=== PATIENT | male | born 1980 | race Caucasian/White ===

== ENCOUNTER 2017-02-24 06:29 | Day surgery (SDC) | payer OTHER ==
[2017-02-24] VITALS (7 sets, daily range): BP systolic 110–142; BP diastolic 53–84
[~2017-02-24] VITALS: Ht 182.9 cm; Wt 89.5 kg
[2017-02-24] MEDS ORDERED: ONDANSETRON 4MG/2ML VIAL (J2405) IV ONE (07:15)
[2017-02-24] MEDS ORDERED: NS 1,000 ML IV ONE (07:15)
[2017-02-24 07:46] LABS: BASO % 0.1 % (0.0-1.0); EOS # 0.1 K/mm3 (0.0-0.50); EOS % 0.9 % (0.0-3.0); LARGE UNSTAINED CELL # 0.1 K/mm3 (0.0-0.4); LARGE UNSTAINED CELL % 0.5 % (0.0-4.0); LYMPH % 6.2 % (24.0-44.0); MEAN CORPUSCULAR HEMOGLOBIN 32.2 pg (27.0-33.0); MEAN CORPUSCULAR HGB CONC 34.6 g/dl (32.0-36.5); MEAN CORPUSCULAR VOLUME 92.9 fl (80.0-96.0); MONO # 0.5 K/mm3 (0.0-0.8); MONO % 3.2 % (0.0-5.0); NEUTROPHILS # 13.2 K/mm3 (1.8-7.7); NEUTROPHILS % 89.1 % (36.0-66.0); PLATELET COUNT, AUTOMATED 207 k/mm3 (150-450); RED CELL DISTRIBUTION WIDTH 12.8 % (11.5-14.5); WHITE BLOOD COUNT 14.8 K/mm3 (4.0-10.0)
[2017-02-24 08:05] LABS: ALBUMIN/GLOBULIN RATIO 1.29 (1.00-1.93); ALKALINE PHOSPHATASE 79 U/L (45-117); ALT/SGPT 29 U/L (12-78); ANION GAP 7 MEQ/L (8-16); AST/SGOT 15 U/L (15-37); BILIRUBIN,DIRECT 0.1 MG/DL (0.0-0.2); BILIRUBIN,TOTAL 0.5 MG/DL (0.2-1.0); BLOOD UREA NITROGEN 10 MG/DL (7-18); CARBON DIOXIDE LEVEL 24 MEQ/L (21-32); CHLORIDE LEVEL 108 MEQ/L (98-107); CREATININE FOR GFR 0.82 MG/DL (0.70-1.30); GLOMERULAR FILTRATION RATE > 60.0 (>60); GLUCOSE, FASTING 139 MG/DL (70-105); POTASSIUM SERUM 3.8 MEQ/L (3.5-5.1); SODIUM LEVEL 139 MEQ/L (136-145); TOTAL PROTEIN 7.1 GM/DL (6.4-8.2)
[2017-02-24] MEDS ORDERED: ISOVUE-370 76% 100ML VIAL (Q9967) As Ordered ONE (08:35)
[2017-02-24] MEDS ORDERED: MORPHINE 4 MG/ML 1ML SYRINGE IV ONE ×2 (09:00→11:00)
[2017-02-24] MEDS ORDERED: PIPERACILLIN/TAZOBACTAM SOD 3.375 GM in D5W MINI-BAG PLUS 50 ML IV ONE (09:30)
--- NOTE | 2017-02-24 09:43 | REP ---
CT ABDOMEN AND PELVIS WITH CONTRAST: TECHNIQUE: Axial contrast enhanced images from the lung bases to the pubic symphysis using 100 mL Isovue 370 intravenous contrast material with multiplanar reformations. Visualized lung bases demonstrate mild dependent atelectatic changes. The liver, spleen, adrenals, pancreas and kidneys are normal in appearance. There is no hydronephrosis. There is no abdominal aortic aneurysm. There is no significant adenopathy. There is no free air or free fluid. The appendix is dilated and diffusely thickened with surrounding streaky inflammatory change consistent with appendicitis. The urinary bladder is mildly distended and grossly unremarkable. No other pelvic abnormality is seen. IMPRESSION: Findings consistent with appendicitis with no free air or free fluid. Signed by Shayne Starkey MD 02/24/2017 11:58 A
[2017-02-24] MEDS ORDERED: MORPHINE 4 MG/ML 1ML SYRINGE As Ordered ONE (10:16)
[2017-02-24] MEDS ORDERED: BUPIVACAINE/EPIN 0.25% 30 ML VIAL As Ordered ONE (13:47)
[2017-02-24] MEDS ORDERED: LIDOCAINE 2% INJ 100 MG/5 ML SDV (FOR ANES.) As Ordered ONE (13:51)
[2017-02-24] MEDS ORDERED: PROPOFOL 200 MG/20 ML VIAL As Ordered ONE (13:51)
[2017-02-24] MEDS ORDERED: ONDANSETRON 4MG/2ML VIAL (J2405) As Ordered ONE (13:51)
[2017-02-24] MEDS ORDERED: ROCURONIUM BROMIDE 50 MG/5 ML VIAL/SYRINGE As Ordered ONE (13:51)
[2017-02-24] MEDS ORDERED: fentaNYL 250 MCG/5 ML INJECTION (J3010) As Ordered ONE (13:52)
[2017-02-24] MEDS ORDERED: MIDAZOLAM INJ 2 MG/2 ML VIAL (J2250) As Ordered ONE (13:52)
[2017-02-24] MEDS ORDERED: KETOROLAC 60 MG/2 ML VIAL (J1885) As Ordered ONE (14:49)
[2017-02-24] MEDS ORDERED: HYDROmorphone HCL 2 MG/ML 1ML VIAL (J1170) As Ordered ONE (14:50)
[2017-02-24] MEDS ORDERED: SUCCINYLCHOLINE 100 MG/5 ML SYRINGE (J0330) As Ordered ONE (14:52)
[2017-02-24] MEDS ORDERED: SUGAMMADEX SODIUM 500 MG/5 ML VIAL (BRIDION) As Ordered ONE (15:09)
[2017-02-24] MEDS ORDERED: PERCOCET 5MG/325MG TAB PO PRN (16:15)
[2017-02-24] MEDS ORDERED: HYDROmorphone HCL 1 MG/ML SYRINGE (J1170) IV PRN (16:15)
[2017-02-24] MEDS ORDERED: ONDANSETRON 4MG/2ML VIAL (J2405) IV PRN (16:15)
[2017-02-24] MEDS ORDERED: LR 1,000 ML IV SCH (16:15)
[2017-02-24] MEDS ORDERED: fentaNYL 100 MCG/2 ML INJECTION (J3010) IV PRN (16:15)
[2017-02-24] MEDS ORDERED: MORPHINE 2 MG/ML 1ML SYRINGE IV PRN (16:30)
[2017-02-24] MEDS ORDERED: ACETAMINOPHEN TAB 650MG DOSE (2X325MG) PO PRN (16:30)
[2017-02-24] MEDS: PIPERACILLIN/TAZOBACTAM SOD 3.375 GM in D5W MINI-BAG PLUS 50 ML IV SCH ×2 (17:07→23:00)
[2017-02-24] MEDS: LR 1,000 ML IV SCH ×2 (17:07→22:55)
[2017-02-24] MEDS: NORCO, ANEXSIA 5/325MG TABLET (HYDROcodone/ACETAMINOPHEN) PO PRN ×2 (17:08→23:15)
[2017-02-24] MEDS: KETOROLAC 30 MG/ML VIAL (J1885) IV SCH (20:21)
[2017-02-25] VITALS: BP 121/65
[2017-02-25] MEDS: KETOROLAC 30 MG/ML VIAL (J1885) IV SCH ×2 (02:59→09:15)
[2017-02-25 04:00] VITALS: BP 116/69
[2017-02-25] MEDS: PIPERACILLIN/TAZOBACTAM SOD 3.375 GM in D5W MINI-BAG PLUS 50 ML IV SCH (04:59)
[2017-02-25] MEDS: NORCO, ANEXSIA 5/325MG TABLET (HYDROcodone/ACETAMINOPHEN) PO PRN ×2 (05:04→09:39)
[2017-02-25 08:00] VITALS: BP 127/73
[2017-02-25] MEDS ORDERED: NORCOTAB PO (08:38)
[2017-02-25] MEDS ORDERED: AUGM500T34 PO (08:38)
--- NOTE | 2017-03-24 05:35 | RO ---
DATE OF PROCEDURE: 02/24/2017 PREOPERATIVE DIAGNOSIS: Acute appendicitis. POSTOPERATIVE DIAGNOSIS: Acute appendicitis. PROCEDURE: Laparoscopic appendectomy. SURGEON: Pardeep Kumar MD WAYBILL CLERK: ANESTHESIA: General endotracheal anesthesia ESTIMATED BLOOD LOSS: Minimal. FLUIDS: Crystalloid. DESCRIPTION OF PROCEDURE: The patient was brought to the operating room and was given general anesthesia. After adequate anesthesia and preoperative antibiotics were given, the patient was prepped and draped in the usual sterile fashion. Next, a supraumbilical incision was made with skin knife. Blunt dissection was carried down to fascia. Fascia was grasped with Pilar clamps, elevated and a Veress needle placed into the abdominal cavity, insufflated to that 15 mm of pressure. A dilating 12 mm trocar was placed at the umbilicus and under direct visualization suprapubic and left lower quadrant 5 mm trocars were placed. Next, the patient was placed in a Trendelenburg left side down position and the appendix was mobilized off the sidewall using Harmonic scalpel, and once this was mobilized adequately, the mesentery of the appendix was taken with Harmonic scalpel. Eventually this dissection continued all the way up to the base of the cecum where the convergence of the base of the appendix/cecum were well visualized and clear and free of mesentery. This was transected using a MYRIAM stapler, placed in an EndoCatch bag and brought out through the umbilicus. The right lower quadrant was copiously irrigated until clear. All incisions were closed with #4-0 Vicryl after the umbilical incision was closed with #0 Vicryl at the fascial layer. Steri-Strips and a dry sterile dressing was applied. The patient was awakened, extubated, brought to the recovery room awake, alert and hemodynamically stable. Sponge and needle count correct times two/
== END 2017-02-25 10:40 | disposition home or self-care (01) ==
LOC: M ED 06:29 → M SDC 10:36 → M PED 12:12 → M SDC 02-25 10:40
PROVIDERS: ATTEND Surgery
DX: K35.89 Other acute appendicitis (principal)
CPT/HCPCS: 44970; 74177; 80048; 80076; 81001; 83690; 85025; 88304; 96361; 96365; 96366; 96375; 96376; 99284; J0330; J1170; J1885; J2250; J2405; J2543; J3010; Q9967